=== PATIENT | male | born 2000 | race Caucasian/White ===

== ENCOUNTER 2023-03-06 20:05 | Emergency (ER) | payer OTHER ==
[~2023-03-06] VITALS: Ht 180.3 cm; Wt 93.3 kg
[2023-03-06 21:48] VITALS: BP 135/71
[2023-03-06] MEDS ORDERED: IBUP-1456 PO (23:11)
[2023-03-06] MEDS ORDERED: CEPH500C PO (23:11)
== END 2023-03-07 00:01 | disposition home or self-care (01) ==
LOC: ER 20:05
DX: S61.412A Laceration without foreign body of left hand, initial encounter (principal); W26.1XXA Contact with sword or dagger, initial encounter; Y93.89 Activity, other specified; Y92.89 Other specified places as the place of occurrence of the external cause; Y99.8 Other external cause status
CPT/HCPCS: 12002